=== PATIENT | female | born 1995 | race Caucasian/White ===

== ENCOUNTER 2017-07-28 11:28 | Day surgery (SDC) | payer OTHER ==
[2017-07-28 12:02] VITALS: BP 127/82; TEMP 98.7; BMI 35.4
[2017-07-28 12:34] LABS: Amnisure Test No Membranes Rupture (No Rupture)
[2017-07-28 12:35] LABS: Amnisure Internal Control QC ACCEPTABLE (ACCEPTABLE)
--- NOTE | 2017-07-28 14:55 | SS ---
DATE OF EVALUATION: 07/28/2017 LABOR AND DELIVERY TRIAGE EVALUATION CHIEF COMPLAINT: Fall at home. HISTORY OF PRESENT ILLNESS: Ms. Carbajal is a 21-year-old white G1, P0, estimated date of confinement of 09/26/2017 who presents after having a fall on the sidewalk at home. She states that she missed the last step on some steps that she had at home. She fell on her right side, but denies abdominal contact. Since that time, she has denied cramping, vaginal bleeding or ruptured membranes although she says she has felt wet over the last week. PAST OBSTETRICAL HISTORY: This is her first she has seen Dr. Bennett without complications. PAST MEDICAL HISTORY: Unremarkable. PAST SURGICAL HISTORY: Unremarkable. CURRENT MEDICATIONS: vitamins. ALLERGIES: No known allergies. SOCIAL HISTORY: Denies tobacco or alcohol use. REVIEW OF SYSTEMS: Denies nausea, vomiting, fever, chills, vaginal bleeding. PHYSICAL EXAMINATION: VITAL SIGNS: Stable. She is afebrile. ABDOMEN: Soft and nontender. Pelvic exam is deferred. heart tones are stable and there are no decelerations. Uterine contractions are irregularly seen with oral hydration, but stopped after she voided. Patient was observed here for well over an hour and had no significant contractions. Her AmniSure test was negative. ASSESSMENT: 1. 31 1/2 week IUP. 2 No evidence of labor or abruptio placenta. PLAN: At this time, she will be sent home. She was given complete labor precautions and told to return to the hospital should she have any pain or bleeding. She voiced understanding of her discharge instructions and was sent home in good condition. ALFRED
== END 2017-07-28 14:15 | disposition home or self-care (01) ==
LOC: L&D/OP 11:28
PROVIDERS: ATTEND Obstetrics & Gynecology
DX: Z04.3 Encounter for examination and observation following other accident (principal); Z79.899 Other long term (current) drug therapy
CPT/HCPCS: 84112; 99282

== ENCOUNTER 2017-09-11 00:01 | Day surgery (SDC) | payer OTHER ==
[2017-09-11 00:50] LABS: Amnisure Test No Membranes Rupture (No Rupture)
[2017-09-11 00:51] LABS: Amnisure Internal Control QC ACCEPTABLE (ACCEPTABLE)
[2017-09-11 00:55] VITALS: BP 133/81; TEMP 98.2; BMI 38.0
--- NOTE | 2017-09-11 01:44 | PRG ---
DATE OF SERVICE: 09/11/2017 TIME OF SERVICE: 0100 hours. OB ED NOTE PRESENTING COMPLAINT: Possible rupture of membranes at 37 weeks' gestation. HISTORY OF PRESENT ILLNESS: Ms. Carbajal is a 21-year-old, 1, para 0, EDC of 09/26/2017, sees Dr Johnathan Bennett. She is at 37 weeks' gestation. She reports that she had leakage of fluid from the va nya, no bleeding, active fetus, occasional contractions. Denies fever or chills. OBSTETRIC AND GYNECOLOGIC HISTORY: None. Uncomplicated . Blood type O positive. Antibody negative. Pap negative. Rubella immune. VDRL nonreactive. Hepati tis B, GC, chlamydia negative. Group B strep record not available. PAST MEDICAL HISTORY: None. PAST SURGICAL HISTORY: None. ALLERGIES: Denies. MEDICATIONS: vitamins. SOCIAL HISTORY: Denies tobacco, alcohol, or drug use. FAMILY HISTORY: Noncontributory. REVIEW OF SYSTEMS: Noncontributory. PHYSICAL EXAMINATION: GENERAL: White female, obese. VITAL SIGNS: Temperature 98.7, respirations 18, pulse 92, blood pressure 128/72. HEENT: Within normal limits. LUNGS: Clear to auscultation bilaterally. HEART: Regular rate and rhythm. ABDOMEN: Soft and nontender. Fundal height 38 cm. FHTs 130s to 140s. PELVIC: Vulva without lesions. Vagina without discharge. Cervix 1, long, and high by RN exam. EXTREMITIES: Without clubbing, cyanosis, or edema. LABORATORY STUDIES: AmniSure negative. heart rate tracing greater than 30 minutes, was catego ry 1 with occasional contractions, no decelerations. IMPRESSION: No evidence of rupture of membranes. PLAN: Discharge home. Keep scheduled followup.
== END 2017-09-11 01:18 | disposition home or self-care (01) ==
LOC: L&D/OP 00:01
PROVIDERS: ATTEND Obstetrics & Gynecology
DX: O60.03 Preterm labor without delivery, third trimester (principal); Z79.899 Other long term (current) drug therapy
CPT/HCPCS: 84112; 99283

== ENCOUNTER 2017-09-14 00:43 | Day surgery (SDC) | payer OTHER ==
[2017-09-14 01:16] VITALS: BMI 38.0
--- NOTE | 2017-09-14 08:44 | HP ---
DATE OF ENCOUNTER: 09/14/2017 PRIMARY CRIBBING SETTER: Modesto Bennett DO CHIEF COMPLAINT: Abdominal pain. HISTORY OF PRESENT ILLNESS: The patient is a 21-year-old, G1, P0 female with an intrauterine pregnan cy at 38 weeks and 2 days, who is presenting to labor and delivery with uterine contractions that beg an at about 10:30 this evening. She does admit that since coming to the hospital, her contractions h ave significantly dissipated. She denies any vaginal bleeding or leakage of fluid. She does report that she has been vomiting at night. She denies heartburn. She does admit that she has pain with mo vement and activity that is sharp in nature. She also reports that she has been having another pain in addition to that comes and goes. The patient was recently seen couple days ago and was found to h ave a cervical length of 1, thick and high with a negative AmniSure test. The patient denies any fev er, fall, headache, chest pain, shortness of breath, diarrhea, constipation, any new rashes, hip prob lems, knee problems, muscle weakness, vaginal bleeding, leakage of fluid, urinary urgency or frequenc y. PAST MEDICAL HISTORY: Negative. PAST SURGICAL HISTORY: Negative. ALLERGIES: No known drug allergies. MEDICATIONS: vitamins. SOCIAL HISTORY: Denies drug, alcohol or tobacco use. REVIEW OF SYSTEMS: Per HPI. PHYSICAL EXAMINATION: VITAL SIGNS: Blood pressure 124/71, heart rate 80, respiratory rate 18, satting 97% on room air, tem perature 97.9. GENERAL: She appears to be in no acute distress. She is alert and oriented, cooperative and pleasan t to interact with. HEENT: Head is normocephalic, atraumatic. LUNGS: Clear to auscultation bilaterally. HEART: Regular rate and rhythm. ABDOMEN: Gravid and soft with minimal tenderness to deviation of the uterus. EXTREMITIES: Nontender, nonedematous. CERVICAL EXAM: Per nursing staff is 1, 15, and -2, unchanged after 2-1/2 hours. heart tracing for abdominal pain, baseline is noted to be in the 120s with moderate long-term v ariability, positive accelerations, no decelerations. Tocometer shows some irritability, but difficu lt to assess contractions. ASSESSMENT AND PLAN: The patient is a 21-year-old G1, P0 female with an intrauterine at 38 weeks and 2 days, who is presenting to labor and delivery with term contractions without labor and m usculoskeletal pains likely ligamentous in nature. The patient has no evidence of labor. The heart tones are reactive with category 1 tracing. There is no evidence of labor. The patient is ugo ng discharged to home.
== END 2017-09-14 04:10 | disposition home or self-care (01) ==
LOC: L&D/OP 00:43
PROVIDERS: ATTEND Obstetrics & Gynecology
DX: O47.1 False labor at or after 37 completed weeks of gestation (principal); Z3A.38 38 weeks gestation of pregnancy; Z79.899 Other long term (current) drug therapy
CPT/HCPCS: 99283

== ENCOUNTER 2017-09-20 04:52 | Day surgery (SDC) | payer OTHER ==
[2017-09-20 05:26] VITALS: BMI 38.0
[2017-09-20] MEDS ORDERED: hydrOXYzine Pamoate 25 mg Capsule PO SCH (08:15)
--- NOTE | 2017-09-20 08:16 | PDOC.EVN ---
Event Note - Event Note Event Note: Triage Note Pt came in early AM w contractions. No LOF, good FM> GEN: NAD VSS FHT cat 1 [place] q 6-10min SVE /-1 unchanged over 2 hrs-RN exam A/P: Here for contractions but no cervical change management expert a number of hours of observation. Pt stable, DC home w L and D warnings.
== END 2017-09-20 08:48 | disposition home or self-care (01) ==
LOC: L&D/OP 04:52
PROVIDERS: ATTEND Obstetrics & Gynecology
DX: O47.1 False labor at or after 37 completed weeks of gestation (principal); Z3A.39 39 weeks gestation of pregnancy
CPT/HCPCS: 99283; Q0177

== ENCOUNTER 2017-09-21 08:45 | Inpatient (IN) | payer OTHER ==
[2017-09-21] MEDS ORDERED: Butorphanol Tartrate 1 MG/ML VIAL SLOW IVP PRN (09:27)
[2017-09-21] MEDS ORDERED: Zolpidem Tartrate 5 MG TAB PO PRN (09:27)
[2017-09-21] MEDS ORDERED: Docusate 100 MG CAP PO PRN (09:27)
[2017-09-21] MEDS ORDERED: Ondansetron HCl/PF 4 MG/2 ML Vial IVP PRN ×5 (09:27→19:18)
[2017-09-21] MEDS ORDERED: HYDROcodone/Acetaminophen 5/325 mg Tablet PO PRN ×2 (09:27)
[2017-09-21] MEDS ORDERED: Lidocaine 1% (PF) 30 ML VIAL SC PRN (09:27)
[2017-09-21] MEDS ORDERED: Meperidine HCl/PF 25 MG/ML VIAL IM/IV PRN (09:27)
[2017-09-21] MEDS ORDERED: Ibuprofen 800 MG TAB PO PRN (09:27)
[2017-09-21] MEDS ORDERED: Promethazine HCl 25 MG/ML VIAL IM PRN ×3 (09:27→17:14)
[2017-09-21] MEDS ORDERED: NS / Oxytocin 40 units/1000ml 1,000 ML IV PRN (09:27)
[2017-09-21] MEDS ORDERED: NS w/ Oxytocin 10 units 500 ML IV SCH (09:30)
[2017-09-21] MEDS ORDERED: Lactated Ringer's 1,000 ML IV SCH ×2 (09:30→19:18)
--- NOTE | 2017-09-21 09:34 | PDOC.LDHP ---
Labor and Delivery H&P Chief complaint: contractions, loss of fluid HPI: 21 yo WF presenys c/o UCs since last night now with SROM ckear at 7;45 AM. Current gestational age (weeks): 39 Due date: 09/26/17 Dating criteria: last menstrual period Grav: 1 Para: 0 OB History Details: PNC with Dr. Bennett w/o complications. Current complications: none Abnormal US findings: No Past Medical History: None Current medications: pre- vitamins Previous surgical history: none Allergies/Adverse Reactions: Allergies Allergy/AdvReac Type Severity Reaction Status Date / Time No Known Allergies Allergy Verified 09/20/17 05:24 Social history: none - Physical Exam Vital signs reviewed and normal: yes General: breathing through contractions Heart: RRR Lungs: nonlabored breathing Abdomen: gravid Extremeties: trace edema FHT: category 1 [place] contractions every: q 5-7 mins - Vaginal Exam cm dilated: 4 Effacement: 90% - OB Labs Blood type: O RH: positive Antibody Screen: negative HIV: negative RPR: negative HEPSAg: negative 1 hour GCT: negative GBS: negative Rubella: immune - Assessment L&D Assessment: term rupture in membranes (GBS is negative) - Plan Plan: admit to L&D, labor augmentation if indicated
[2017-09-21] MEDS: Lactated Ringer's 1,000 ML IV SCH ×2 (09:42→11:15)
[2017-09-21] MEDS ORDERED: DISCONTINUE ALL PREVIOUS NARCOTICS FS SCH (09:45)
[2017-09-21] MEDS ORDERED: Bupivacaine 0.5% 20 ML, fentaNYL Citrate/PF 400 MCG in Sodium Chloride 0.9% 72 ML EPIDURAL SCH (09:45)
[2017-09-21 09:46] VITALS: BMI 38.0
[2017-09-21 10:01] LABS: Hemoglobin 13.2 g/dL (12.0-16.0); Mean Corpuscular HGB CONC 35.3 g/dL (32.0-36.0); Mean Corpuscular Hemoglobin 33.3 pg (25.0-35.0); Mean Corpuscular Volume 94.1 fl (77.0-87.0); Mean Platelet Volume 8.8 fL (7.4-10.4); Platelet Count 151 thou/uL (130-400); RBC Distribution Width 11.8 % (11.5-14.5); Red Blood Cell (RBC) Count 3.96 mill/uL (4.00-5.20); White Blood Cell (WBC) Count 12.4 thou/uL (4.8-10.8)
[2017-09-21 10:38] LABS: Syphilis Antibody Nonreactive (Nonreactive); Syphilis Antibody Index 0.04 S/CO (<1.00 Non-Reactive)
[2017-09-21 10:41] LABS: HBSAg Index 0.24 S/CO (0-0.99); Hep B Surf Ag Non-Reactive S/CO (NonReactive)
[2017-09-21] MEDS ORDERED: Lidocaine 2% MPF 10 ML AMP (For Epidural Use) ONE (11:11)
[2017-09-21] MEDS ORDERED: Lactated Ringer's 500 ML IV PRN (11:31)
[2017-09-21] MEDS ORDERED: ePHEDrine/0.9% NaCl/PF SYRINGE 50 mg/10 ml SLOW IVP PRN (11:31)
[2017-09-21] MEDS ORDERED: Acetaminophen 325 MG TAB PO PRN (11:31)
[2017-09-21] MEDS ORDERED: Eucerin (Mineral Oil/Petrolatum,White) 30 gm Jar TOP PRN ×2 (11:31→17:14)
[2017-09-21] MEDS ORDERED: diphenhydrAMINE 50 MG/ML VIAL IVP PRN ×2 (11:31→17:14)
[2017-09-21] MEDS ORDERED: Naloxone HCl 0.4 mg/ml Vial IVP PRN ×4 (11:31→17:14)
[2017-09-21] MEDS ORDERED: Fentanyl 4mcg/Marcaine 0.1% Cassette 100 ML EPIDURAL SCH (11:45)
[2017-09-21] MEDS ORDERED: Communication Order-Pharmacy FS SCH ×2 (11:45→17:15)
--- NOTE | 2017-09-21 12:54 | PDOC.LDPN ---
Labor & Delivery Progress Note - Subjective Subjective: comfortable - Objective Vital signs reviewed and normal: yes General: resting Dilation: 7 Effacement: 100% Station: 0 FHT: category 1 [place] contractions every: 3 - Assessment (1) SROM (spontaneous rupture of membranes) Code(s): [id number] - Current Visit: Yes Status: Acute (2) 39 weeks gestation of Code(s): Z3A.39 - 39 WEEKS GESTATION OF Current Visit: Yes Status : Acute Plan: continue plan of care
--- NOTE | 2017-09-21 16:03 | PDOC.EVN ---
Event Note - Event Note Event Note: CTSP for decreased FHTs. SVE C/C/+1 vtx. No tetany seen. Pt. on left side with O2 by FM. FSE placed. Fhts with slow recovery, now 120's. Observe for now and allow recovery. Dr. Bennett notified.
[2017-09-21] MEDS ORDERED: CEFAZOLIN/Water 2 GM/20 ML SYRINGE ONE (16:19)
[2017-09-21] MEDS ORDERED: Bicitra 30 ML UDCUP ONE (16:19)
[2017-09-21] MEDS ORDERED: Lidocaine 2% 10 ML INJ ONE (16:20)
[2017-09-21] MEDS ORDERED: CEFAZOLIN/Water 2 GM/20 ML SYRINGE SLOW IVP SCH (16:30)
[2017-09-21] MEDS ORDERED: Bicitra 30 ML UDCUP PO SCH (16:30)
[2017-09-21] MEDS ORDERED: Ondansetron HCl/PF 4 MG/2 ML Vial ONE (16:36)
[2017-09-21] MEDS ORDERED: Ketorolac Tromethamine 30 MG/ML VIAL ONE (16:36)
[2017-09-21] MEDS ORDERED: Ketamine 50 MG/ML VIAL ONE (16:40)
[2017-09-21] MEDS ORDERED: Fentanyl 100 MCG/2 ML VIAL ONE (16:40)
[2017-09-21] MEDS ORDERED: Oxytocin 10 UNITS/ML VIAL ONE (16:40)
[2017-09-21] MEDS ORDERED: Midazolam HCl 2 mg/2 ml Vial ONE (16:41)
[2017-09-21 16:55] LABS: Actual Bicarbonate (HCO3a) 24.8 mEq/L (22-26); Actual Bicarbonate (HCO3v) 22 mEq/L (22-26); Analyzer IN Cardio OR; Base Excess -2.9 mEq/L (0 (+/- 2.5)); Base Excess (BEa) -1.5 mEq/L (0 (+/-) 2.5)
[2017-09-21] MEDS ORDERED: Morphine PF 1 MG/ML SYR ONE (17:03)
--- NOTE | 2017-09-21 17:05 | PDOC.OPDEL ---
OB Operative/Delivery Note Delivery Dr/Surgeon: Donald Assist: Ramone Pre-Delivery Diagnosis: non-reassuring tracing (during 2nd stage) Weeks gestation: 39 Anesthesia: epidural - Findings A Sex: female Weight: 6 lb 12 oz - 1 min: 8 - 5 min: 9 - Additional Findings/Plan Placenta delivered: manual removal findings: low transverse hysterotomy without extension, normal uterus, normal tubes, normal ovaries Estimated blood loss: 700ml Post delivery plan: routine recovery
[2017-09-21] MEDS ORDERED: Promethazine HCl 25 MG SUPP PR PRN (17:14)
[2017-09-21] MEDS ORDERED: Naloxone HCl 0.4 mg/ml Vial IV PRN (17:14)
[2017-09-21] MEDS ORDERED: HYDROmorphone 2 MG/ML VIAL SLOW IVP PRN (17:14)
[2017-09-21] MEDS ORDERED: Meperidine HCl/PF 25 MG/ML VIAL SLOW IVP PRN (17:14)
[2017-09-21] MEDS ORDERED: Ketorolac Tromethamine 30 MG/ML VIAL IVP SCH (17:15)
--- NOTE | 2017-09-21 19:16 | OP ---
DATE OF PROCEDURE: 09/21/2017 PREOPERATIVE DIAGNOSES: 1. A 39 weeks, G1 in active labor with spontaneous rupture of membranes. 2. Nonreassuring heart tones during the second stage. POSTOPERATIVE DIAGNOSIS: Status post primary low transverse section. SURGEON: Modesto Bennett D.O. SUPPORT COORDINATOR: Rogelio Pack M.D. ANESTHESIA: Epidural per Dr. Valdes. COMPLICATIONS: None. ESTIMATED BLOOD LOSS: 700 mL. FINDINGS: 1. Low transverse hysterotomy without extension. 2. Normal appearing uterus, tubes, and ovaries bilaterally. 3. Vigorous female infant, Apgars 8 and 9, weight 6 pounds 12 ounces to nursery. 4. Surgical sites hemostatic. 5. Placenta delivered intact and fundus firm. INDICATIONS FOR PROCEDURE: Ms. Alisson Carbajal presented in active labor with spontaneous rupture of membr anes. She progressed spontaneously without augmentation to 10, 100 and +2 station. Approximately 5 minutes into her pushing efforts, a prolonged late deceleration to the 80s-90s lasting approximately 4 minutes was noted. At that time, pushing efforts were stopped until a physician could be present a t the bedside. With Dr. Pack at the bedside, I was called and given the report. When I arrived, t he baby had self-resuscitated well with good variability and we attempted pushing again. Again with the second push, bradycardia was noted again and that the indication for section for n onreassuring heart tones were discussed with the patient and she agreed to the plan of care. O f note, at that time, the baby was +2 station. An operative delivery was not felt to be the safest o ption for the patient. We proceeded to OR. PROCEDURE DETAILS: The patient was taken back to the OR with IV fluids running and a Kumari catheter and epidural catheter that were previously placed. Once the patient was in the OR, she was placed in dorsal supine position with a left lateral tilt. The abdomen was prepped and draped in normal fashi on for section. Surgeons were scrubbed in. Anesthesia was tested and found to be adequate. A Pfannenstiel skin incision was made with the scalpel. Skin incision was carried down through sub cutaneous tissue to the fascia. Once the fascia was reached, it was incised in the midline and exten ded superolaterally with curved Sandy scissors. Anny clamps were placed at the superior border of t he fascia, which was sharply and bluntly dissected off the rectus abdominis muscles in both caudad an d cephalad directions allowing adequate space for delivery of the infant. The rectus muscles were bl untly in the midline. Peritoneum was bluntly entered and stretched laterally. An Zi O retractor was placed in the peritoneal cavity for retraction, visualization and protection of the wo und. A low transverse hysterotomy was made with the scalpel. The uterus was entered bluntly and str etched superolaterally using the Mack maneuver. An Allis clamp was used to rupture intact membranes and clear fluid was noted. With the assist of a vaginal hand, the head was delivered through the hys terotomy followed by the body. The nose and mouth were suctioned. The cord was doubly clamped and c ut and the was handed off to special care nurses in attendance. Cord gas was collected. Cord blood was collected. The placenta was delivered. Uterus was exteriorized, massaged to firm, and cl eared of clot and debris. Hysterotomy was then inspected with no extension noted. Hysterotomy was c losed with Monocryl suture in a running locked fashion. The hysterotomy was oversewn in the right co rner with hemostasis after the second layer closure. After the hysterotomy was closed, the hysteroto my and pericolic gutters were suctioned and dried. All instruments were removed from the abdomen and the count was correct. The Zi O retractor was removed from the abdomen. The muscle and fascia were inspected with no areas of bleeding noted. The fascia was then reapproximated with PDS suture i n a running fashion from corner to corner. Subcutaneous tissue was then irrigated and dried. Any sm all areas of bleeding were controlled with Bovie cauterization. The subcutaneous layer was then reap proximated with plain gut suture. The skin was closed with 4-0 Monocryl and dressed with Dermabond d ressing. Uterus was noted to be firm. The patient was stable and in good condition. She was cleane d, dried, and taken to the recovery room.
[2017-09-21] MEDS ORDERED: Simethicone Chewable 80 MG TAB PO PRN (19:18)
[2017-09-21] MEDS ORDERED: Bisacodyl 10 MG SUPP PR PRN (19:18)
[2017-09-21] MEDS ORDERED: diphenhydrAMINE 25 MG CAP PO PRN (19:18)
[2017-09-21] MEDS ORDERED: NS / Oxytocin 40 units/1000ml 1,000 ML IV SCH (19:18)
[2017-09-21] MEDS ORDERED: Lanolin Ointment 7 GM TUBE TOP PRN (19:18)
[2017-09-21] MEDS: Ketorolac Tromethamine 30 MG/ML VIAL IVP PRN (20:00)
[2017-09-21] MEDS ORDERED: Adacel (T-DAP) 0.5 ML VIAL IM ONE (20:00)
[2017-09-22] MEDS: Docusate Calcium (SURFAK) 240 MG CAP PO SCH ×3 (01:41→21:46)
[2017-09-22] MEDS: Ferrous Sulfate 325 MG TAB PO SCH ×2 (01:42→08:53)
[2017-09-22] MEDS: Ketorolac Tromethamine 30 MG/ML VIAL IVP PRN (05:13)
[2017-09-22] MEDS ORDERED: Acetaminophen/Codeine 30-300mg Tablet PO PRN (05:15)
[2017-09-22 05:27] LABS: Hemoglobin 11.1 g/dL (12.0-16.0); Mean Corpuscular HGB CONC 34.9 g/dL (32.0-36.0); Mean Corpuscular Hemoglobin 33.1 pg (25.0-35.0); Mean Platelet Volume 8.4 fL (7.4-10.4); Platelet Count 124 thou/uL (130-400); RBC Distribution Width 11.6 % (11.5-14.5); Red Blood Cell (RBC) Count 3.35 mill/uL (4.00-5.20); White Blood Cell (WBC) Count 14.4 thou/uL (4.8-10.8)
[2017-09-22] MEDS: Prenatal Vitamin 1 TAB PO SCH (08:56)
--- NOTE | 2017-09-22 11:24 | PDOC.PP ---
Post Progress Note Post Day #: 1 Subjective: voided 500ml, eating, pain controlled, breast feeding PO intake tolerated: yes Flatus: yes Ambulation: yes Vital Signs (12 hours) Temp Pulse Resp BP Pulse Ox 09/22/17 08:36 98.9 F 76 16 16 L 09/22/17 07:40 98.9 F 76 16 106/57 L 96 09/22/17 03:50 98.4 F 75 16 117/64 95 09/22/17 00:20 97.9 F 83 18 Weight Weight 215 lb - Physical Examination General: NAD Respiratory: clear to auscultation bilaterally Abdominal: no distention, appropriately TTP Extremities: negative homans (B) Skin: CS incision dry & intact, no rash Neurological: no gross focal deficits Psychiatric: A&Ox3, normal affect Result Diagrams: 09/22/17 05:04 Additional Labs: Post Labs Blood Type O POSITIVE 09/21/17 09:42 Hep Bs Antigen Non-Reactive S/CO (NonReactive) 09/21/17 09:52 (1) SROM (spontaneous rupture of membranes) Code(s): OIL3596 - Status: Acute (2) 39 weeks gestation of Code(s): Z3A.39 - 39 WEEKS GESTATION OF Status: Acute - Assessment/Plan POD1 doing well sp 1CS for NRFHT during 2nd stage remote from delivery. Cont PP care.
[2017-09-22] MEDS: Ibuprofen 800 MG TAB PO SCH (21:46)
[2017-09-23] MEDS: Ferrous Sulfate 325 MG TAB PO SCH ×3 (00:55→21:57)
[2017-09-23] MEDS: Acetaminophen/Codeine 30-300mg Tablet PO PRN ×2 (04:57→11:52)
--- NOTE | 2017-09-23 05:28 | PDOC.PP ---
Post Progress Note Post Day #: 2 Subjective: Doing well. No new concerns PO intake tolerated: yes Flatus: yes Ambulation: yes Vital Signs (12 hours) Temp Pulse Resp BP Pulse Ox 09/23/17 00:30 97.9 F 89 18 122/84 98 09/22/17 20:08 98.4 F 82 18 128/71 97 Weight Weight 215 lb - Physical Examination General: NAD Cardiovascular: no m/r/g Respiratory: clear to auscultation bilaterally Abdominal: + bowel sounds, lochia, no distention, appropriately TTP Extremities: negative homans (B) Skin: CS incision dry & intact (Dermabond in use, sutured), no rash Neurological: no gross focal deficits Psychiatric: A&Ox3, normal affect Result Diagrams: 09/22/17 05:04 Additional Labs: Post Labs Blood Type O POSITIVE 09/21/17 09:42 Hep Bs Antigen Non-Reactive S/CO (NonReactive) 09/21/17 09:52 (1) delivery delivered Code(s): O82 - ENCOUNTER FOR DELIVERY WITHOUT INDICATION Status: Acute - Assessment/Plan POD 2 doing well. S/P Primary CVS intrapartum for FHR decels. Continue in-house obs. Likely DC home tomorrow AM 09/24/17. No evidence ileus at this time.
[2017-09-23] MEDS: Docusate Calcium (SURFAK) 240 MG CAP PO SCH ×2 (08:55→21:56)
[2017-09-23] MEDS: Prenatal Vitamin 1 TAB PO SCH (08:55)
[2017-09-23] MEDS: Ibuprofen 800 MG TAB PO SCH ×3 (11:53→21:56)
[2017-09-24] MEDS: Ibuprofen 800 MG TAB PO SCH (06:10)
--- NOTE | 2017-09-24 07:12 | DIS ---
DATE OF ADMISSION: 09/21/2017 DATE OF DISCHARGE: 09/24/2017 ADMITTING DIAGNOSIS: Intrauterine at 39 weeks with rupture of membranes. DISCHARGE DIAGNOSIS: Primary for nonreassuring heart tones. PROCEDURE: Primary lower transverse section. HOSPITAL COURSE: The patient is a 21-year-old female G1, now P1 with an intrauterine at 39 weeks, who presented with spontaneous rupture of membranes. The patient was admitted for active man agement of labor. She ended up with a primary for nonreassuring heart tones. For th e complete details, please refer to the operative note. Estimated blood loss was about 700 mL. The patient's postoperative course has been uncomplicated. Her post-delivery hemoglobin is 11.1, hematoc rit 31.8, platelets 124,000. Today is postoperative day #3, the patient today reports she is tolerat ing p.o., voiding on her own, having good pain control and decreased lochia. PHYSICAL EXAMINATION: VITAL SIGNS: Most recent vital signs, blood pressure 117/72, temperature 98.0, pulse is 70, respirat ory rate 16, satting 97% on room air. GENERAL: She appears to be in no acute distress. She is alert and oriented, cooperative and pleasan t to interact with. HEENT: Head is normocephalic, atraumatic. ABDOMEN: Soft. Fundus is firm. Incision is clean, dry, and intact. No erythema or induration. EXTREMITIES: Has minimal edema and symmetrical. DISCHARGE INSTRUCTIONS: The patient is being discharged to home with instructions to follow up with Dr. Bennett for 2 week incision check. She has been given instructions to limit her exertion and weigh t 215 pounds for the next 4-6 weeks. She has been also given instructions to seek medical attention sooner if she experiences fever, increasing pain or bleeding, redness or drainage from the incision o r other concerns. The patient is being discharged to home with a prescription written by Dr. Bennett T ylenol #3 #30 and Motrin 800 #30.
[2017-09-24] MEDS: Ferrous Sulfate 325 MG TAB PO SCH (08:14)
[2017-09-24] MEDS: Docusate Calcium (SURFAK) 240 MG CAP PO SCH (09:10)
[2017-09-24] MEDS: Prenatal Vitamin 1 TAB PO SCH (09:10)
[2017-09-24 09:14] VITALS: BP 111/73; TEMP 97.9
== END 2017-09-24 12:15 | disposition home or self-care (01) | DRG 766 ==
LOC: L&D/OP 08:45 → L&D 09:46 → 3SE 19:16
PROVIDERS: ADMIT Obstetrics & Gynecology; ATTEND Obstetrics & Gynecology
PROC: 10D00Z1 Extraction of Products of Conception, Low, Open Approach (ICD-10-PCS; principal; 2017-09-21)
DX: O76 Abnormality in fetal heart rate and rhythm complicating labor and delivery (principal); Z37.0 Single live birth; Z3A.39 39 weeks gestation of pregnancy; O42.02 Full-term premature rupture of membranes, onset of labor within 24 hours of rupture
CPT/HCPCS: 36415; 82805; 85027; 86780; 86850; 86900; 86901; 87340; J0595; J1885; J2001; J2250; J2274; J2405; J2590; J3010; J3490; J7050